=== PATIENT | male | born 1955 | race Caucasian/White ===

== ENCOUNTER → 2019-12-05 10:17 | Outpatient (BNVA) | payer BC, SELFPAY | PROVIDERS: Family Provider Nurse Practitioner Family; PCP Nurse Practitioner Family; Visit Provider Registered Nurse | DX: E11.44 Type 2 diabetes mellitus with diabetic amyotrophy (principal); I10 Essential (primary) hypertension; R05 Cough; G25.81 Restless legs syndrome; Z72.0 Tobacco use | CPT/HCPCS: 80053; 83036 ==

== ENCOUNTER → 2020-02-27 10:37 | Outpatient (BNVA) | payer BC, SELFPAY | PROVIDERS: Family Provider Nurse Practitioner Family; PCP Nurse Practitioner Family; Visit Provider Registered Nurse | DX: E11.9 Type 2 diabetes mellitus without complications (principal); I10 Essential (primary) hypertension | CPT/HCPCS: 80053; 80061; 83036; 85025 ==

== ENCOUNTER → 2020-05-28 08:38 | Outpatient (BNVA) | payer BC, SELFPAY | PROVIDERS: Family Provider Nurse Practitioner Family; PCP Nurse Practitioner Family; Visit Provider Registered Nurse | DX: E11.65 Type 2 diabetes mellitus with hyperglycemia (principal); E78.5 Hyperlipidemia, unspecified; E11.9 Type 2 diabetes mellitus without complications; I10 Essential (primary) hypertension; R05 Cough; Z72.0 Tobacco use | CPT/HCPCS: 80053; 80061; 83036 ==

== ENCOUNTER → 2020-09-03 08:28 | Outpatient (BNVA) | payer BC, SELFPAY | PROVIDERS: Family Provider Nurse Practitioner Family; PCP Nurse Practitioner Family; Visit Provider Registered Nurse | DX: E11.65 Type 2 diabetes mellitus with hyperglycemia (principal); I10 Essential (primary) hypertension; E11.9 Type 2 diabetes mellitus without complications | CPT/HCPCS: 80053; 80061; 83036 ==

== ENCOUNTER 2020-09-12 11:13 | Outpatient (CLI) | payer BC, SELFPAY ==
--- NOTE | 2020-09-12 11:30 | CT_ITS ---
WS: [id number] CT ABDOMEN WITH CONTRAST HISTORY: Abdominal pain in epigastric area. Nausea. Contiguous single phase 5 mm axial imaging performed to the abdomen. Oral contrast has been provided. Coronal and sagittal reformats are submitted. All CT scans at [facility] use at least on e of these dose optimization techniques: automated exposure control; mA and/or kV adjustment per adeline ent size (includes targeted exams where dose is matched to clinical indication); or iterative reconst ruction. CONTRAST: Omnipaque 300; 95 mL IV. DLP: 866.72 mGycm COMPARISON: 12/13/2009 Lower thorax: Unremarkable. Liver: Normal. No intrahepatic dilatation. Gallbladder: Normal. Pancreas: Mild inflammatory changes surrounding the uncinate process. No free fluid. Spleen: Normal. Adrenals: Normal. Right kidney: Large exophytic cyst from the lower pole measures 7.1 x 7.2 cm. No obstruction. Left kidney: Several small cortical cysts. The largest in the upper kidney measures 2.2 x 1.5 cm. Aorta: Moderate atherosclerosis within the aorta. There is interval plaque causing a mild stenosis in the aorta below the level of the renal arteries. Maximum anterior posterior diameter is 10 mm of the lumen. GI tract: Mild thickening involving the distal duodenum from the adjacent inflammatory process involv ing the pancreas. No obstruction. No adenopathy or free fluid. Abdominal wall: No hernia. Visualized osseous structures: Unremarkable. CT/CT abdomen w con* [id number] IMPRESSION: 1. Mild acute pancreatitis involving the uncinate process with adjacent mild i nflammatory changes of the distal duodenum. 2. No pseudocyst. 3. Bilateral renal cysts. 4. Moderate atherosclerosis aorta with mild narrowing of the lumen. Notified CONRADO Laws at 09/12/2020 11:56 AM. Not available. Message lef t at the clinic that the report was completed.
[2020-09-12] MEDS: iohexol 300 mg/mL 100 mL Btl IV (11:50)
== END 2020-09-12 11:14 | disposition home or self-care (01) ==
LOC: RADWPI 11:17
PROVIDERS: Family Provider Nurse Practitioner Family; PCP Nurse Practitioner Family; Visit Provider Nurse Practitioner Family
DX: R10.13 Epigastric pain (principal); K85.80 Other acute pancreatitis without necrosis or infection; N28.1 Cyst of kidney, acquired; I70.0 Atherosclerosis of aorta
CPT/HCPCS: 74160; Q9967

== ENCOUNTER → 2021-04-10 08:19 | Outpatient (BNVA) | payer OTHER, SELFPAY | PROVIDERS: Family Provider Nurse Practitioner Family; PCP Registered Nurse; Visit Provider Registered Nurse | DX: E11.65 Type 2 diabetes mellitus with hyperglycemia (principal); I10 Essential (primary) hypertension; E78.5 Hyperlipidemia, unspecified; Z72.0 Tobacco use | CPT/HCPCS: 80053; 80061; 83036 ==

== ENCOUNTER → 2021-05-22 08:32 | Outpatient (BNVA) | payer OTHER, SELFPAY | PROVIDERS: Family Provider Nurse Practitioner Family; PCP Registered Nurse; Visit Provider Registered Nurse | DX: J06.9 Acute upper respiratory infection, unspecified (principal) | CPT/HCPCS: 87635 ==

== ENCOUNTER → 2021-06-09 08:08 | Outpatient (BNVA) | payer OTHER, SELFPAY | PROVIDERS: Family Provider Nurse Practitioner Family; PCP Registered Nurse; Visit Provider Registered Nurse | DX: E11.65 Type 2 diabetes mellitus with hyperglycemia (principal) | CPT/HCPCS: 83036 ==

== ENCOUNTER → 2021-09-11 08:11 | Outpatient (BNVA) | payer OTHER, SELFPAY | PROVIDERS: Family Provider Nurse Practitioner Family; PCP Registered Nurse; Visit Provider Registered Nurse | DX: E11.65 Type 2 diabetes mellitus with hyperglycemia (principal) | CPT/HCPCS: 83036 ==

== ENCOUNTER → 2021-12-15 09:34 | Outpatient (BNVA) | payer OTHER, SELFPAY | PROVIDERS: Family Provider Nurse Practitioner Family; PCP Registered Nurse; Visit Provider Registered Nurse | DX: E11.9 Type 2 diabetes mellitus without complications (principal); I10 Essential (primary) hypertension; E11.65 Type 2 diabetes mellitus with hyperglycemia | CPT/HCPCS: 80053; 80061; 83036; 83721; 85025 ==

== ENCOUNTER → 2022-03-25 08:50 | Outpatient (BNVA) | payer OTHER, SELFPAY | PROVIDERS: Family Provider Nurse Practitioner Family; PCP Registered Nurse; Visit Provider Registered Nurse | DX: E11.65 Type 2 diabetes mellitus with hyperglycemia (principal) | CPT/HCPCS: 80053; 83036 ==

== ENCOUNTER → 2022-08-03 08:33 | Outpatient (BNVA) | payer MEDICARE, SELFPAY | PROVIDERS: PCP Registered Nurse; Visit Provider Registered Nurse | DX: E11.65 Type 2 diabetes mellitus with hyperglycemia (principal); I10 Essential (primary) hypertension | CPT/HCPCS: 80053; 80061; 83036; 83721; 85025 ==

== ENCOUNTER → 2022-09-14 08:16 | Outpatient (BNVA) | payer MEDICARE, SELFPAY | PROVIDERS: PCP Registered Nurse; Visit Provider Surgery | DX: K59.09 Other constipation (principal) | CPT/HCPCS: 99203 ==

== ENCOUNTER → 2022-11-03 08:56 | Outpatient (BNVA) | payer MEDICARE, SELFPAY | PROVIDERS: PCP Registered Nurse; Visit Provider Registered Nurse | DX: E11.9 Type 2 diabetes mellitus without complications (principal); E11.65 Type 2 diabetes mellitus with hyperglycemia | CPT/HCPCS: 80053; 83036 ==

== ENCOUNTER 2022-11-04 05:34 | Day surgery (SDC) | payer MEDICARE, SELFPAY ==
[2022-11-02 09:48] VITALS: BMI 33.8
[2022-11-04 06:10] VITALS: BP 164/84; PULSE 94; RESP 18; TEMP 36.2; O2SAT 96
[2022-11-04] MEDS: sodium chloride 0.9% 1,000 ML 30 ML IV (06:14)
[2022-11-04 06:21] LABS: Glucose Point of Care 201 mg/dL (70-110)
--- NOTE | 2022-11-04 06:35 | W.PM.OPSFHP ---
Same Day Surgery H&P Indication for Procedure/HPI DATE OF PROCEDURE: November 04, 2022 CHIEF COMPLAINT/INDICATIONFOR SURGICAL PROCEDURE: Issues with my bowel PREOP DIAGNOSIS: History of colon polyps and change in bowel habits PLANNED PROCEDURE: Operation Date: 11/04/22 07:00 Proposed Procedures p Colonoscopy 75324,K59.09(Not Applicable) - Clinton Linda MD 09/14/2022 This is a pleasant 67 years old gentleman comes today with a history of worsening constipation.? Patient is referred to my practice for consideration of colonoscopy.? Patient's constipation has been intermittent for the past 3 to 4 months.? And when he has to go it does hurt per his description.? Patient reports history of polyps and hemorrhoids in the past.? Last colonoscopy was 3 years ago and he was educated to repeat the colonoscopy in 3 years. 11/04/2022 Patient comes today for colonoscopy ROS All systems have been reviewed negative except as for the above or per problem list. Medications/Allergies* Home Medications Medication Instructions Recorded Confirmed Type docusate sodium 100 mg capsule 100 mg PO BID 09/14/22 11/04/22 History (Dulcolax Stool Softener (docusate)) polyethylene glycol 3350 17 4 g PO DAILY PRN Constipation 09/14/22 11/04/22 History gram/dose oral powder (Miralax) gabapentin 300 mg capsule 300 mg PO TID 11/02/22 11/04/22 History lisinopril 10 mg tablet 10 mg PO DAILY 11/02/22 11/04/22 History Allergies/Adverse Reactions Allergy/AdvReac Type Severity Reaction Status Date / Time albuterol Allergy Unknown Verified 11/04/22 06:36 Current Medications: Generic Name Dose Route Start Last Admin Trade Name Freq PRN Reason Stop Dose Admin Sodium Chloride 1,000 mls @ 30 mls/hr 11/04/22 06:00 11/04/22 06:14 Sodium Chloride 0.9% IV 30 mls/hr .Q24H MANISH Administration Pertinent History/Comorbid Conditions* Medical History (Updated 08/18/22 @ 08:31 by CONRADO Nolasco) Chronic cough Diabetic neuropathy associated with type 2 diabetes mellitus Hypertension Restless leg syndrome Tobacco abuse Type 2 diabetes mellitus Social History Smoking and tobacco status: current every day smoker Alcohol intake: never Adopted: No Caregiver/support person: No Lives independently: No Household members: spouse Marital status: service: No Current occupational status: employed Sexually active: Yes Current gender identity: Male Pertinent Exam Findings alert, oriented x 3, regular rate & rhythm and procedure specific exam findings (Abdominal exam nontender nondistended soft) Recommendations Surgery/Procedure today (Colonoscopy with possible biopsy) Coding Level of Care Code Acute Glaze Supervisor for Clive Mckinney
--- NOTE | 2022-11-04 06:46 | ANES.PREANE2 ---
Pre-Anesthetic Assessment Height/Weight: Height 1.78 m Weight 107.048 kg Temp Pulse Resp BP Pulse Ox O2 Del Method 97.2 F L 94 18 164/84 96 11/04/22 06:10 11/04/22 06:10 11/04/22 06:10 11/04/22 06:10 11/04/22 06:10 11/04/22 06:10 Preop Diagnosis: History of colon polyps and change in bowel habits Operation Date: 11/04/22 07:00 Proposed Procedures p Colonoscopy 55210,K59.09(Not Applicable) - Clinton Linda MD Last intake: Intake Last Liquid Date 11/03/22 Last Liquid Time 20:00 Last Solid Date 11/02/22 Social 1 ppd pack(s) per day Airway Mallampati: Class III Dentition: full Pulmonary Sleep Apnea CV/HEM Hypertension None reported Hepatic None reported GI None reported Metabolic Diabetes Mellitus and Morbid Obesity Neuropsych Anxiety Anesthetic Plan ASA status: 3 Anesthesia: MAC Medications/Allergies Home Medications Medication Instructions Recorded Confirmed Last Taken Type omeprazole magnesium 20 mg 20 mg PO BID #90 caps 04/13/22 11/04/22 11/02/22 Rx capsule,delayed release docusate sodium 100 mg capsule 100 mg PO BID 09/14/22 11/04/22 11/03/22 History (Dulcolax Stool Softener (docusate)) polyethylene glycol 3350 17 4 g PO DAILY PRN Constipation 09/14/22 11/04/22 11/02/22 History gram/dose oral powder (Miralax) gabapentin 300 mg capsule 300 mg PO TID 11/02/22 11/04/22 11/02/22 History lisinopril 10 mg tablet 10 mg PO DAILY 11/02/22 11/04/22 11/02/22 History empagliflozin 25 mg tablet 25 mg PO DAILY #90 tabs 11/03/22 11/04/22 11/02/22 Rx (Jardiance) glipizide 5 mg tablet 5 mg PO BID 90 days #180 tabs 11/03/22 11/04/22 11/02/22 Rx metformin 500 mg tablet 500 mg PO BID #180 tabs 11/03/22 11/04/22 11/02/22 Rx Allergies Allergy/AdvReac Type Severity Reaction Status Date / Time albuterol Allergy Unknown Verified 11/04/22 06:36 Current Medications Generic Name Dose Route Start Last Admin Trade Name Manpreetq PRN Reason Stop Dose Admin Sodium Chloride 1,000 mls @ 30 mls/hr 11/04/22 06:00 11/04/22 06:14 Sodium Chloride 0.9% IV 30 mls/hr .Q24H MANISH Administration PFSH Anesthesia Medical History Chronic cough Diabetic neuropathy associated with type 2 diabetes mellitus Hypertension Restless leg syndrome Tobacco abuse Type 2 diabetes mellitus Social History Smoking and tobacco status: current every day smoker Alcohol intake: never Adopted: No Caregiver/support person: No Lives independently: No Household members: spouse Marital status: service: No Current occupational status: employed Sexually active: Yes Current gender identity: Male Data Anesthesia Cardiac Studies: No Data to Display
[2022-11-04 07:20] VITALS: BP 162/92; PULSE 75; RESP 18; TEMP 36.1; O2SAT 92
[2022-11-04 07:25] VITALS: BP 141/83; PULSE 73; RESP 18; O2SAT 96
--- NOTE | 2022-11-04 07:34 | PC.NURSE ---
patient abd large, round, firm, bowel sounds active x4, patient passing gas. states patients abd round and firm pre procedure.
[2022-11-04 07:35] VITALS: BP 133/78; PULSE 72; RESP 18; O2SAT 92
--- NOTE | 2022-11-04 15:53 | ANE.PACU2 ---
Inpatient post-anesthesia follow up: Airway intact: Yes Vital signs: Temperature 97.0 F Pulse Rate 72 Respiratory Rate 18 Blood Pressure 133/78 Pulse Oximetry 92 Oxygen Delivery Me thod Nasal Cannula Oxygen Flow Rate 2 Fraction of Inspir ed Oxygen Hydration adequate: Yes Nausea and vomiting: No Pain level: 1 Mental status: Baseline
== END 2022-11-04 07:56 | disposition home or self-care (01) ==
PROVIDERS: PCP Registered Nurse; Visit Provider Surgery
PROC: 0DJD8ZZ Inspection of Lower Intestinal Tract, Via Natural or Artificial Opening Endoscopic (ICD-10-PCS; CPT 45378; principal; 2022-11-04 07:00)
DX: K59.09 Other constipation (principal); K63.5 Polyp of colon; Z86.010 Personal history of colon polyps; E11.42 Type 2 diabetes mellitus with diabetic polyneuropathy; I10 Essential (primary) hypertension; F17.200 Nicotine dependence, unspecified, uncomplicated; G47.30 Sleep apnea, unspecified; E66.01 Morbid (severe) obesity due to excess calories; Z68.33 Body mass index [BMI] 33.0-33.9, adult; Z79.84 Long term (current) use of oral hypoglycemic drugs
CPT/HCPCS: 36416; 45385; 82962; 88305; J2250; J2704; J7030

== ENCOUNTER → 2022-11-12 11:26 | Outpatient (BNVA) | payer MEDICARE, SELFPAY | PROVIDERS: PCP Registered Nurse; Visit Provider Surgery | DX: Z09 Encounter for follow-up examination after completed treatment for conditions other than malignant neoplasm (principal); K63.5 Polyp of colon | CPT/HCPCS: 99212 ==

== ENCOUNTER → 2023-02-18 14:10 | Outpatient (BNVA) | payer MEDICARE, SELFPAY | PROVIDERS: PCP Registered Nurse; Visit Provider Nurse Practitioner Family | DX: N39.0 Urinary tract infection, site not specified (principal); N41.9 Inflammatory disease of prostate, unspecified; N40.0 Benign prostatic hyperplasia without lower urinary tract symptoms; E11.65 Type 2 diabetes mellitus with hyperglycemia; E11.9 Type 2 diabetes mellitus without complications | CPT/HCPCS: 81000 ==

== ENCOUNTER → 2023-03-30 08:29 | Outpatient (BNVA) | payer MEDICARE, SELFPAY | PROVIDERS: PCP Registered Nurse; Visit Provider Registered Nurse | DX: E11.9 Type 2 diabetes mellitus without complications (principal) | CPT/HCPCS: 80053; 80061; 83036; 85025 ==

== ENCOUNTER → 2023-07-01 08:56 | Outpatient (BNVA) | payer MEDICARE, SELFPAY | PROVIDERS: PCP Registered Nurse; Visit Provider Registered Nurse | DX: E11.9 Type 2 diabetes mellitus without complications (principal) | CPT/HCPCS: 80053; 83036 ==

== ENCOUNTER → 2023-10-06 08:05 | Outpatient (BNVA) | payer MEDICARE, SELFPAY | PROVIDERS: PCP Registered Nurse; Visit Provider Registered Nurse | DX: E11.9 Type 2 diabetes mellitus without complications (principal); I10 Essential (primary) hypertension | CPT/HCPCS: 80053; 80061; 83036; 83721 ==

== ENCOUNTER → 2023-12-07 10:00 | Outpatient (BNVA) | payer MEDICARE, SELFPAY | PROVIDERS: PCP Registered Nurse; Visit Provider Registered Nurse | DX: E11.9 Type 2 diabetes mellitus without complications (principal) | CPT/HCPCS: 82962 ==

== ENCOUNTER → 2024-01-25 08:28 | Outpatient (BNVA) | payer MEDICARE, SELFPAY | PROVIDERS: PCP Registered Nurse; Visit Provider Registered Nurse | DX: E11.9 Type 2 diabetes mellitus without complications (principal) | CPT/HCPCS: 80053; 80061; 83036; 85025 ==

== ENCOUNTER → 2024-07-03 07:59 | Outpatient (BNVA) | payer MEDICARE, SELFPAY | PROVIDERS: PCP Registered Nurse; Visit Provider Registered Nurse | DX: E53.8 Deficiency of other specified B group vitamins (principal); E87.5 Hyperkalemia | CPT/HCPCS: 80053; 82607 ==

== ENCOUNTER → 2024-09-06 11:22 | Outpatient (BNVA) | payer MEDICARE, SELFPAY | PROVIDERS: PCP Registered Nurse; Visit Provider Registered Nurse | DX: E11.9 Type 2 diabetes mellitus without complications (principal) | CPT/HCPCS: 82607; 83036 ==

== ENCOUNTER → 2024-12-11 07:52 | Outpatient (BNVA) | payer MEDICARE, SELFPAY | PROVIDERS: PCP Registered Nurse; Visit Provider Registered Nurse | DX: I10 Essential (primary) hypertension (principal); E11.44 Type 2 diabetes mellitus with diabetic amyotrophy | CPT/HCPCS: 80048; 80061; 83036; 85025 ==

== ENCOUNTER → 2025-03-01 09:54 | Outpatient (BNVA) | payer MEDICARE, SELFPAY | PROVIDERS: PCP Registered Nurse; Visit Provider Registered Nurse | DX: E11.9 Type 2 diabetes mellitus without complications (principal) | CPT/HCPCS: 83036 ==

== ENCOUNTER → 2025-06-12 09:20 | Outpatient (BNVA) | payer MEDICARE, SELFPAY | PROVIDERS: PCP Registered Nurse; Visit Provider Registered Nurse | DX: I10 Essential (primary) hypertension (principal); E11.9 Type 2 diabetes mellitus without complications | CPT/HCPCS: 80048; 82607; 83036 ==

== ENCOUNTER → 2025-07-03 07:39 | Outpatient (BNVA) | payer MEDICARE, SELFPAY | PROVIDERS: PCP Registered Nurse; Visit Provider Registered Nurse | DX: E11.44 Type 2 diabetes mellitus with diabetic amyotrophy (principal) | CPT/HCPCS: 80053 ==

== ENCOUNTER → 2025-10-16 07:51 | Outpatient (BNVA) | payer MEDICARE, SELFPAY | PROVIDERS: PCP Registered Nurse; Visit Provider Registered Nurse | DX: R19.7 Diarrhea, unspecified (principal) | CPT/HCPCS: 80053; 85025 ==

== ENCOUNTER 2025-10-25 08:46 | Outpatient (CLI) | payer MEDICARE, SELFPAY ==
--- NOTE | 2025-10-25 09:15 | CT_ITS ---
WS: [id number] CT ABDOMEN AND PELVIS NONCONTRAST HISTORY: K57.92 - Diverticulitis of intestine, part unspecified, 2 to 3 weeks diarrhea with bloating. TECHNIQUE: Imaging performed through the abdomen and pelvis. Coronal and sagittal reformats are submitted. All CT scans at [facility] use at least one of these dose optimization techniques: automated exposure control; mA and/or kV adjustment per patient size (includes targeted exams where dose is matched to clinical indication); or iterative reconstruction. DLP: 645.07 mGy.cm COMPARISON: 09/12/2020 Lower thorax: Lung bases are clear. Visualized heart is normal. Small hiatal hernia. Liver: Normal size liver. No mass or bile duct dilatation. Gallbladder: Prior cholecystectomy. Pancreas: Normal size and attenuation. Normal pancreatic duct. No pancreatitis or mass. Spleen: Normal. Adrenal glands: Normal. No mass. Right kidney: Normal size kidney. There is a large cyst exophytic from the lower pole measuring 8.5 x 8.1 cm. No renal obstruction. Very mild perinephric stranding. Normal size ureter. Left kidney: Reidentified is a cyst from the posterior upper pole measuring 1.6 x 2.6 cm. No renal or ureteral obstruction. Mild perinephric stranding. Aorta: Moderate to severe atherosclerosis abdominal aorta. No aneurysm. Atherosclerosis continues into the common iliac arteries. No free fluid, intraperitoneal air or significant lymphadenopathy. GI tract: No GI tract obstruction. Normal small bowel and appendix. Colon is tortuous with moderate constipation. There are few diverticula but no acute diverticulitis. Abdominal wall: Negative. No hernia. Pelvis: Minimally distended urinary bladder. No free fluid or adenopathy in the pelvis. Mild prostate enlargement. Fat-containing LEFT inguinal hernia. There is a loop of distal colon at the orifice of the hernia but no obstruction. Osseous structures: Fusion of the L5-S1 facet joints. No destructive bone process. CT/CT abdomen pelvis wo con [id number] IMPRESSION: 1. No GI tract obstruction or colitis. 2. Mild constipation with tortuous colon. There are a few diverticula but no a cute diverticulitis. 3. Prior cholecystectomy. 4. Bilateral renal cysts. 5. Mild atherosclerosis aorta. 6. No renal obstruction. There is mild perinephric stranding which can be system support administrator chong or related to a urinary tract infection. 7. No ascites.
[2025-10-25] MEDS: iohexol 350 mg/mL 500 mL Btl (per mL) PO (10:02)
== END 2025-10-25 08:47 | disposition home or self-care (01) ==
LOC: RAD 08:46
PROVIDERS: PCP Registered Nurse; Visit Provider Registered Nurse
DX: K57.92 Diverticulitis of intestine, part unspecified, without perforation or abscess without bleeding (principal); Z90.49 Acquired absence of other specified parts of digestive tract; N28.1 Cyst of kidney, acquired; I70.0 Atherosclerosis of aorta; R93.89 Abnormal findings on diagnostic imaging of other specified body structures
CPT/HCPCS: 74176